=== PATIENT | male | born 1995 | race Caucasian/White ===

== ENCOUNTER 2024-02-05 15:48 | Emergency (ER) | payer BC, MEDICAID, SELFPAY ==
--- NOTE | 2024-02-05 15:48 | ECG_ITS ---
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 Measurements Intervals [place] Rate: 87 P: 78 WA: 130 QRS: 72 QRSD: 85 T: 19 QT: 360 QTc: 434 Interpretive Statements SINUS RHYTHM WITH OCCASIONAL VENTRICULAR PREMATURE COMPLEXES NONSPECIFIC T-WAVE ABNORMALITY No previous ECG available for comparison Electronically Signed On 02-05-2024 16:52:39 CDT by Simone Cantu M.D. [email or web address] township.[email or web address]/store/[id number] f
--- NOTE | 2024-02-05 15:51 | XRR_ITS ---
PROCEDURE INFORMATION: Exam: XR Chest Exam date and time: 02/05/2024 5:34 PM Age: 28 years old Clinical indication: Pain; Chest pressure; Additional info: Cp TECHNIQUE: Imaging protocol: Radiologic exam of the chest. Views: 1 view. COMPARISON: No relevant prior studies available. FINDINGS: Lungs: Unremarkable. No consolidation. Pleural spaces: Unremarkable. No pleural effusion. No pneumothorax. Heart/Mediastinum: Unremarkable. No cardiomegaly. Bones/joints: Unremarkable. XR/XR chest 1V portable [id number] IMPRESSION: No acute findings.
[2024-02-05 15:54] VITALS: BP 179/103; PULSE 92; RESP 17; TEMP 36.7; O2SAT 100; BMI 34.5
[2024-02-05 16:23] LABS: Basophils % 0.3 %; Eosinophils # 0.1 10^3/uL (0.0-0.8); Eosinophils % 1.3 %; Hematocrit 43.3 % (37-53); Lymphocytes # 3.2 10^3/uL (0.8-4.8); Lymphocytes % 29.7 %; Mean Corpuscular HGB Conc 35.8 g/dL (30-55); Mean Corpuscular Hemoglobin 31.3 pg (27-33); Mean Corpuscular Volume 87.3 fl (82-101); Mean Platelet Volume 9.3 fL (7.4-10.4); Monocytes # 0.7 10^3/uL (0.2-0.9); Monocytes % 6.4 %; Neutrophils # 6.61 10^3/uL (1.8-7.7); Nucleated Red Blood Cells % 0 %; Platelet Count 238 10^3/cmm (157-399); Red Blood Count 4.96 10^6/uL (3.85-5.65); Red Cell Distribution Width 11.9 % (12.1-15.1); White Blood Count 10.66 10^3/uL (3.29-11.43)
[2024-02-05 16:45] LABS: Alanine Aminotransferase 28 U/L (0-41); Albumin Level 4.8 g/dL (3.5-5.2); Alkaline Phosphatase 66 U/L (40-130); Anion Gap 17.1 (5-19); Aspartate Amino Transferase 30 U/L (0-40); Blood Urea Nitrogen 19 mg/dL (6-20); Calcium 9.8 mg/dL (8.5-10.5); Carbon Dioxide 26 mmol/L (22-29); Chloride 100 mmol/L (98-107); Globulin 3.6 g/dL (1.3-4.6); Glomerular Filtration Rate 88.3 mL/min (90-130); Glucose 95 mg/dL (65-115); Lipase 37 U/L (13-60); Osmolality Calculated 290 mOsm/kg (285-295); Potassium 4.1 mmol/L (3.5-5.1); Sodium 139 mmol/L (136-145); Total Bilirubin 0.5 mg/dL (0.15-1.2); Total Protein 8.4 g/dL (6.6-8.7)
[2024-02-05 16:59] LABS: Troponin(5th) Baseline 14 ng/L (0-15)
--- NOTE | 2024-02-05 18:00 | ECG_ITS ---
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 Measurements Intervals [place] Rate: 91 P: 81 GA: 132 QRS: 75 QRSD: 85 T: 43 QT: 360 QTc: 444 Interpretive Statements SINUS RHYTHM NONSPECIFIC T-WAVE ABNORMALITY Compared to ECG 02/05/2024 15:48:39 Ventricular premature complex(es) no longer present T-wave abnormality still present Electronically Signed On 02-07-2024 6:31:28 CDT by Dana Young M.D. [email or web address]/store/[id number]
[2024-02-05 18:23] LABS: Troponin 5 2HR 13.34 ng/L (0-15); Troponin 5 2HR Delta -0.66 ABS# (0-10)
[2024-02-05 18:30] VITALS: BP 170/103; PULSE 71; RESP 16; O2SAT 100
--- NOTE | 2024-02-05 18:50 | W.ED.CHESTPA ---
HPI - Chest Pain General: Chief Complaint: Chest Pain Stated Complaint: chest pain Time Seen by Provider: 02/05/24 18:25 History of Present Illness: Patient presents to the ER with complaint of epigastric type chest pain. This is intermittently and worsens with greasy fatty foods and improves with belching. This been going on for several months off and on. Patient said he gets better when he takes Tums and Mylanta Pepcid etc. Patient several years ago lost a bunch of weight but then he hurt his ankle and is again part of it back from not eating the best per patient. He has started eating better these last several months and this pain has been improved but is still there the majority of the time. Review of Systems General: Reports: 10 or more systems reviewed and unremarkable except in HPI and below Physical Exam Const: COMMON NORMALS: no acute distress, average body habitus, patient oriented x3, no limitations, healthy appearing, alert and well nourished HENMT: COMMON NORMALS: normocephalic, atraumatic, hearing grossly normal bilaterally, external ears normal, Normal external nose present and moist oral mucous membranes HEAD & SCALP: normocephalic and atraumatic NOSE: Normal external nose present EXTERNAL EAR: Yes external ears normal Neck/C-Spine: COMMON NORMALS: full ROM, no lymphadenopathy, supple, no meningeal signs, no JVD and Thyroid normal THYROID: Thyroid normal Chest: COMMONS NORMALS: normal inspection of the chest and normal palpation of entire chest wall Resp: COMMON NORMALS: normal respiratory effort, No retractions, No use of accessory muscles and clear to auscultation bilaterally AUSCULTATION: clear to auscultation bilaterally Cardio: COMMON NORMALS: no JVD, regular rate, regular rhythm, S1 normal heart sound present, S2 normal heart sound present, No gallops present (Cardio), No clicks present (Cardio), No murmurs present (Cardio) and No rub (Cardio) RATE: regular rate RHYTHM: regular rhythm HEART SOUNDS: S1 normal heart sound present and S2 normal heart sound present GI: COMMON NORMALS: Normal to inspection, nondistended, normoactive bowel sounds present, Soft to palpation, non-tender, No hepatosplenomegaly present and no masses PALPATION: Yes Soft to palpation and Yes No hepatosplenomegaly present Neuro: COMMON NORMALS: patient oriented x3 SENSORIUM/ORIENTATION: Yes alert MENINGEAL SIGNS: Yes no meningeal signs Course Vital Signs: Vital signs: Vital Signs Temperature 98.0 F 02/05/24 15:54 Pulse Rate 71 02/05/24 18:30 Respiratory Rate 16 02/05/24 18:30 Blood Pressure 170/103 02/05/24 18:30 Pulse Oximetry 100 02/05/24 18:30 Oxygen Delivery Me thod Room Air 02/05/24 18:30 MDM - Chest Pain Medical Decision Making Patient was worked up in a standard chest pain fashion with serial EKGs, serial enzymes, lipase, chest x-ray, all of which was essentially normal. Patient appears to have more epigastric discomfort gastritis type symptoms and true cardiac symptoms. Patient will be placed on Pepcid 40 mg daily. Patient should follow-up with his PCP. Differential Diagnosis Unlikely acute massive pulmonary embolism, acute respiratory failure, acute myocardial infarction, cardiac arrest or sudden cardiac Medical Records I reviewed the patient's medical records. Lab Data I reviewed the patient's lab results. 02/05/24 16:11 02/05/24 16:11 Radiology Impressions Chest X-Ray 02/05/24 15:51 IMPRESSION: No acute findings. Laboratory Results WBC 10.66 10^3/uL (3.29-11.43) 02/05/24 16:11 RBC 4.96 10^6/uL (3.85-5.65) 02/05/24 16:11 Hgb 15.50 g/dL (11.27-16.99) 02/05/24 16:11 Hct 43.3 % (37-53) 02/05/24 16:11 MCV 87.3 fl (82-101) 02/05/24 16:11 MCH 31.3 pg (27-33) 02/05/24 16:11 MCHC 35.8 g/dL (30-55) 02/05/24 16:11 RDW 11.9 % (12.1-15.1) L 02/05/24 16:11 Plt Count 238 10^3/cmm (157-399) 02/05/24 16:11 MPV 9.3 fL (7.4-10.4) 02/05/24 16:11 Neut % (Auto) 62.0 % 02/05/24 16:11 Lymph % (Auto) 29.7 % 02/05/24 16:11 [place] % (Auto) 6.4 % 02/05/24 16:11 Eos % (Auto) 1.3 % 02/05/24 16:11 Baso % (Auto) 0.3 % 02/05/24 16:11 Neut # (Auto) 6.61 10^3/uL (1.8-7.7) 02/05/24 16:11 Lymph # (Auto) 3.2 10^3/uL (0.8-4.8) 02/05/24 16:11 [place] # (Auto) 0.7 10^3/uL (0.2-0.9) 02/05/24 16:11 Eos # (Auto) 0.1 10^3/uL (0.0-0.8) 02/05/24 16:11 Baso # (Auto) 0.0 10^3/uL (0.0-0.1) 02/05/24 16:11 Nucleated RBC % (auto) 0 % 02/05/24 16:11 Nucleated RBCs # 0.0 /100WBC 02/05/24 16:11 Sodium 139 mmol/L (136-145) 02/05/24 16:11 Potassium 4.1 mmol/L (3.5-5.1) 02/05/24 16:11 Chloride 100 mmol/L (98-107) 02/05/24 16:11 Carbon Dioxide 26 mmol/L (22-29) 02/05/24 16:11 Anion Gap 17.1 (5-19) 02/05/24 16:11 BUN 19 mg/dL (6-20) 02/05/24 16:11 Creatinine 1.0 mg/dL (0.7-1.2) 02/05/24 16:11 GFR Calculation 88.3 mL/min (90-130) L 02/05/24 16:11 Glucose 95 mg/dL (65-115) 02/05/24 16:11 Calculated Osmolality 290 mOsm/kg (285-295) 02/05/24 16:11 Calcium 9.8 mg/dL (8.5-10.5) 02/05/24 16:11 Total Bilirubin 0.5 mg/dL (0.15-1.2) 02/05/24 16:11 AST 30 U/L (0-40) 02/05/24 16:11 ALT 28 U/L (0-41) 02/05/24 16:11 Alkaline Phosphatase 66 U/L (40-130) 02/05/24 16:11 Troponin T Baseline 14 ng/L (0-15) 02/05/24 16:11 Troponin T 120 Minute 13.34 ng/L (0-15) 02/05/24 17:51 Delta Troponin T -0.66 ABS# (0-10) L 02/05/24 17:51 Total Protein 8.4 g/dL (6.6-8.7) 02/05/24 16:11 Albumin 4.8 g/dL (3.5-5.2) 02/05/24 16:11 Globulin 3.6 g/dL (1.3-4.6) 02/05/24 16:11 Lipase 37 U/L (13-60) 02/05/24 16:11 All radiology interpretation(s) finalized by discharge Discharge Plan Discharge Patient Disposition: Home Clinical Impression: Abdominal pain, epigastric Gastritis Qualifiers: Gastritis type: unspecified gastritis Chronicity: acute Gastritis bleeding: without bleeding Qualified Code(s): K29.00 - Acute gastritis without bleeding Condition: Stable Prescriptions: New famotidine [Pepcid] 40 mg tablet 40 mg PO DAILY Qty: 30 0RF Discharge Orders: Discharge ED (Routine); Ordered 02/05/24 Ordered By: Paul Mcdermott Referrals: Harjinder Young MD [Primary Care Provider] - 1 week Patient Instructions: Abdominal Pain (ED), Gastritis (ED) Activity Restrictions/Additional Instructions: Your evaluation in the ER did not reveal any acute cardiac cause of your chest/epigastric pain. It is believed that your epigastric pain is more gastritis or stomach related. You have been prescribed Pepcid for your stomach. Please take this every day. Please follow-up with your family practice physician in the next 7 to 10 days for further evaluation and treatment as needed. If your pain worsens or is uncontrolled please feel free to return to the ER. Coding Level of Care Code ED Cardiology Consultant for Sana Keane
[2024-02-05 19:17] VITALS: BP 170/103; PULSE 71; RESP 16; TEMP 36.7; O2SAT 100
== END 2024-02-05 19:18 | disposition home or self-care (01) ==
PROVIDERS: Emergency Medicine; Emergency Provider Emergency Medicine; PCP General Practice
DX: K29.00 Acute gastritis without bleeding (principal); R10.13 Epigastric pain
CPT/HCPCS: 36415; 71045; 80053; 83690; 84484; 85025; 93005; 99285

== ENCOUNTER → 2024-02-16 15:01 | Outpatient (BNVA) | payer MEDICAID, SELFPAY | DX: K21.9 Gastro-esophageal reflux disease without esophagitis (principal) | CPT/HCPCS: 86677 ==

== ENCOUNTER → 2025-02-25 16:15 | Outpatient (BNVA) | payer SELFPAY | DX: Z53.9 Procedure and treatment not carried out, unspecified reason (principal) | CPT/HCPCS: 80053 ==